=== PATIENT | male | born 1970 | race Caucasian/White ===

== ENCOUNTER 2019-05-29 12:23 | Inpatient (IN) | payer OTHER ==
[2019-05-29 13:03] VITALS: BMI 22.5
--- NOTE | 2019-05-29 15:15 | HP ---
CIWA Score Nausea/Vomitin-No Nausea/No Vomiting Muscle Tremors: 2 Anxiety: 1-Mildly Anxious Agitation: 3 Paroxysmal Sweats: 1-Minimal Palms Moist Orientation: 0-Oriented Tacttile Disturbances: 2-Mild Itch/Numbness/Burn Auditory Disturbances: 0-None Visual Disturbances: 1-Very Mild Sensitivity Headache: 0-None Present CIWA-Ar Total Score: 10 - Admission Criteria [facility] Guidelines: Admission for Medically Managed Detox: Requires at least one of the followin. CIWA greater than 12 2. Seizures within the past 24 hours 3. Delirium tremens within the past 24 hours 4. Hallucinations within the past 24 hours 5. Acute intervention needed for co occurring medical disorder 6. Acute intervention needed for co occurring psychiatric disorder 7. Severe withdrawal that cannot be handled at a lower level of care (continued vomiting, continued diarrhea, abnormal vital signs) requiring intravenous medication and/or fluids 8. Admission ROS [facility] Chief Complaint: Christian Schwartz is a 49 year old male presenting for alcohol, heroin, cocaine abuse. Allergies/Adverse Reactions: Allergies Allergy/AdvReac Type Severity Reaction Status Date / Time Fish Containing Products Allergy Severe Itching Verified 05/29/19 12:54 History of Present Illness: Christian Schwartz is a 49 year old male presenting for alcohol, heroin, cocaine abuse. Alcohol: 1 pint at the minimum, 6 can of malt liqour. Daily drinker. Last drink last night. Has been drinking since age of 14. Longest period of sobriety: 3 years when he was on long-term treatment program. Denies seizures, blackouts. Has had falls. Denies head hits. Withdrawal symptoms: anxiety, tremors, headaches. Referred by [facility]. Heroin: last use 2-3 days. 2-3 bags/daily. Rarely IVDU. Inhalation use. Has had a history of overdoses. Does not have a Narcan kit, but knows how to use it. Has never been on a methadone program. Withdrawal: tremors, diarrhea, vomiting Cocaine: approximately 100 dollars per day but occasionally more. Daily user. Smoking, denies IVDU. Marijuana: quarter of an oz per week. Has been detox and rehab in the past. Plans after detox: wants to go to a rehab. Medical History: asthma Psychiatric History: no definitive diagnoses Surgical History: lower back fusion Smoking: chewing tobacco Social: stays in [facility]. Currently unemployed. Formerly working in air conditioning. Utox: THC, CIARA MIKE: 0.000 Will be admitted for alcohol detox with Librium protocol Expected withdrawal symptoms due to recent alcohol use. Exam Limitations: No Limitations - Ebola screening Have you traveled outside of the country in the last 21 days: No Have you had contact with anyone from an Ebola affected area: No Do you have a fever: No - Review of Systems Constitutional: Chills EENT: reports: Tearing Respiratory: reports: Wheezing Cardiac: reports: Lightheadedness, Palpitations GI: reports: Diarrhea : reports: No Symptoms Reported Musculoskeletal: reports: Back Pain, Joint Pain Integumentary: reports: No Symptoms Reported Neuro: reports: Tingling (hands and feet) Endocrine: reports: No Symptoms Reported Hematology: reports: No Symptoms Reported Psychiatric: reports: Orientated x3, Anxious Patient History - Patient Medical History Hx Anemia: No Hx Chronic Obstructive Pulmonary Disease (COPD): No Hx Cancer: No Hx Cardiac Disorders: No Hx Congestive Heart Failure: No Hx Hypertension: No Hx Hypercholesterolemia: Yes (hypertriglyceridemia) Hx Pacemaker: No HX Cerebrovascular Accident: No Hx Seizures: No Hx Dementia: No Hx Diabetes: No Hx Gastrointestinal Disorders: No Hx Liver Disease: No Hx Genitourinary Disorders: No Hx Sexually Transmitted Disorders: No Hx Renal Disease (ESRD): No Hx Thyroid Disease: No Hx Human Immunodeficiency Virus (HIV): No Hx Hepatitis C: No Hx Depression: No Hx Suicide Attempt: No Hx Bipolar Disorder: No Hx Schizophrenia: No - Patient Surgical History Hx Neurologic Surgery: No Hx Cataract Extraction: No Hx Cardiac Surgery: No Hx Lung Surgery: No Hx Breast Surgery: No Hx Breast Biopsy: No Hx Abdominal Surgery: No Hx Appendectomy: No Hx Cholecystectomy: No Hx Genitourinary Surgery: No Hx Orthopedic Surgery: Yes (spinal fusion s/p fall) - PPD History Previous Implant?: No PPD to be Administered?: Yes - Smoking Cessation Smoking history: Current every day smoker Have you smoked in the past 12 months: Yes Hx Chewing Tobacco Use: Yes (1 tin per day) Initiated information on smoking cessation: Yes 'Breaking Loose' booklet given: 05/29/19 - Substances abused Alcohol Substance route: Oral Frequency: Daily Amount used: 1 pint of vodka & 6 pk beer Age of first use: 15 Date of last use: 05/28/19 Crack Substance route: Smoking Frequency: Daily Amount used: $100 Age of first use: 18 Date of last use: 05/29/19 Heroin Substance route: Inhalation Frequency: Daily Amount used: 2-3 bags Age of first use: 20 Date of last use: 05/26/19 Marijuana/Hashish Substance route: Smoking Frequency: Daily Amount used: 2 grams Age of first use: 14 Date of last use: 05/28/19 Admission Physical Exam [facility] - Vital Signs Vital Signs: Vital Signs - 24 hr 05/29/19 12:53 Temperature 97.6 F Pulse Rate 65 Respiratory 20 Rate Blood Pressure 118/71 - Physical General Appearance: Yes: Disheveled, Mild Distress HEENTM: Yes: EOMI, Normocephalic, Normal Voice, LYNN, Pharynx Normal Respiratory: Yes: Chest Non-Tender, No Respiratory Distress, No Accessory Muscle Use, Wheezing (inspiratory and expiratory) Neck: Yes: No masses,lesions,Nodules, Trachea in good position Breast: Yes: Breast Exam Deferred Cardiology: Yes: Regular Rhythm, Regular Rate, S1, S2 Abdominal: Yes: Normal Bowel Sounds, Non Tender, Flat, Soft Genitourinary: Yes: Within Normal Limits Back: Yes: Normal Inspection Musculoskeletal: Yes: full range of Motion, Back pain (lower back) Extremities: Yes: Normal Capillary Refill, Normal Inspection, Normal Range of Motion, Non-Tender Neurological: Yes: ginner II-XII NML intact, Alert, Motor Strength 5/5 Integumentary: Yes: Normal Color, Dry, Warm, Track Garcia (noted on R AC) - Diagnostic (1) Alcohol abuse Current Visit: Yes Status: Acute (2) Heroin abuse Current Visit: Yes Status: Acute (3) Cocaine abuse Current Visit: Yes Status: Acute (4) Marijuana abuse Current Visit: Yes Status: Acute (5) History of spinal fusion Current Visit: Yes Status: Acute Cleared for Admission [facility] - Detox or Rehab [facility] Level of Care: Medically Managed Detox Regimen/Protocol: Methadone/Librium Breathalyzer - Breathalyzer Breathalyzer: 0 Urine Drug Screen - Test Device Lot number: [id number] Expiration date: 01/16/21 - Control Is test valid?: Yes - Results Drug screen NEGATIVE: No Urine drug screen results: THC-Marijuana, CIARA-Cocaine Inpatient Rehab Admission - Rehab Decision to Admit Inpatient rehab admission?: No
[2019-05-29] MEDS ORDERED: BISMUTH SUBSALICYLATE 524 MG/30 ML UD PO PRN (15:50)
[2019-05-29] MEDS ORDERED: MENTHOL/PHENOL 1 EACH UD MM PRN (15:50)
[2019-05-29] MEDS ORDERED: IBUPROFEN 400 MG TABLET (FP) PO PRN (15:50)
[2019-05-29] MEDS ORDERED: MAG HYDROX/AL HYDROX/SIMETH 30 ML UNIT-DOSE CUP PO PRN (15:50)
[2019-05-29] MEDS ORDERED: MAGNESIUM HYDROX 2400MG/30ML ORAL SUSPENSION 30 ML CUP PO PRN (15:50)
[2019-05-29] MEDS ORDERED: MELATONIN 5 MG TABLETS PO PRN (15:50)
[2019-05-29] MEDS ORDERED: ACETAMINOPHEN 325 MG TABLET (FP) PO PRN ×2 (15:50)
[2019-05-29] MEDS ORDERED: METHOCARBAMOL 500 MG TABLET PO PRN (15:50)
[2019-05-29] MEDS ORDERED: MAGNESIUM CITRATE 300 ML BOTTLE PO PRN (15:50)
[2019-05-29] MEDS ORDERED: chlordiazePOXIDE HCL 10 MG CAPSULE PO PRN (15:50)
[2019-05-29] MEDS ORDERED: ALBUTEROL SO4 2.5/IPRATROPIUM 0.5 INH SOL 3 ML VIAL.NEB. NEB PRN (15:53)
--- NOTE | 2019-05-29 16:08 | PN ---
Teaching Attending Note Name of Resident: Zhang Garcia ATTENDING PHYSICIAN STATEMENT I saw and evaluated the patient. I reviewed the resident's note and discussed the case with the resident. I agree with the resident's findings and plan as documented. SUBJECTIVE: 49 year old male here requesting detox from etoh use , reports 1 pint liquor /day and 6 cams of malt liquor , latest ue yesterday , current symptoms as above , first age of use 14 , longest sobriety 3 years while at [facility] , referred today by [facility] . Denies seizures, blackouts , + falls in the past while intoxicated , most recently 2 years ago w/ spinal fracture and surgery ORIF. Heroin: last use 2-3 days ago, claims 2-3 bags/daily, rarely IVDU , mostly via inhalation use , claims OD i n the past , has been to detox denies MMTP . Cocaine: approximately 100 dollars per day but occasionally more, denies IVDU. Marijuana: quarter of an oz per week. Medical History: asthma Surgical History: lower back fusion Smoking: chewing tobacco Social: stays in nursing home. Currently unemployed. Formerly working in air conditioning. Utox: THC, CIARA MIKE: 0.000 OBJECTIVE: wnwd , anxious , agitated , slight UE tremors Ext : left hand dorsum radiocarpal deformity reports remote injury / hand frx , left ankle edema lateral malleolus reprots remote injury , states planning ankle fusion . Vital Signs - 24 hr 05/29/19 12:53 Temperature 97.6 F Pulse Rate 65 Respiratory 20 Rate Blood Pressure 118/71 ASSESSMENT AND PLAN: Alcohol use disorder - modified Librium detox . Smoking cessation counselling .
[2019-05-29] MEDS: hydrOXYzine PAMOATE 25 MG CAPSULE (FP) PO PRN (17:47)
[2019-05-29] MEDS: chlordiazePOXIDE HCL 10 MG CAPSULE PO ONE (17:47)
[2019-05-29] MEDS: chlordiazePOXIDE HCL 25 MG CAPSULE PO SCH (23:28)
[2019-05-29] MEDS: THIAMINE HCL 100 MG TABLET (FP) PO SCH (23:28)
[2019-05-30] MEDS: chlordiazePOXIDE HCL 25 MG CAPSULE PO SCH ×3 (06:46→21:38)
[2019-05-30 10:08] LABS: HEMOGLOBIN 14.8 GM/dL (11.7-16.9); MCH 32.5 pg (25.7-33.7); MCHC 34.5 g/dl (32.0-35.9); MEAN CELL VOLUME 94.2 fl (80-96); MEAN PLT VOLUME 8.4 fl (7.5-11.1); PLATELET COUNT 360 K/MM3 (134-434); RBC 4.57 M/mm3 (4.00-5.60); RDW 13.6 % (11.9-15.9); WHITE BLOOD COUNT 4.7 K/mm3 (4.0-10.0)
[2019-05-30 10:31] LABS: ALBUMIN 3.6 g/dl (3.4-5.0); BILIRUBIN,TOTAL 0.7 mg/dL (0.2-1); BLOOD UREA NITROGEN 15.8 mg/dL (7-18); CALCIUM 9.1 mg/dL (8.5-10.1); POTASSIUM 4.1 mmol/L (3.5-5.1); TOT PROT 6.6 g/dl (6.4-8.2)
[2019-05-30] MEDS: PRENATAL VITAMINS W/ FOLIC ACID TABLET (FP) PO SCH (10:47)
[2019-05-30] MEDS: NICOTINE 14 MG/24 HOURS TOPICAL PATCH TD SCH (10:48)
[2019-05-30] MEDS: NICOTINE POLACRILEX 2 MG GUM BUC PRN ×2 (10:48→16:57)
[2019-05-30 11:16] LABS: RPR NONREACTIVE (NONREACTIVE)
--- NOTE | 2019-05-30 12:56 | PN ---
S CIWA - CIWA Score Nausea/Vomitin-No Nausea/No Vomiting Muscle Tremors: 3 Anxiety: 3 Agitation: 3 Paroxysmal Sweats: 3 Orientation: 0-Oriented Tacttile Disturbances: 0-None Auditory Disturbances: 0-None Visual Disturbances: 0-None Headache: 0-None Present CIWA-Ar Total Score: 12 S Progress Note (SOAP) Subjective: sweats mild shakes feeling ok Objective: 05/30/19 12:55 Vital Signs Temperature 97.1 F L 05/30/19 09:17 Pulse Rate 65 05/30/19 09:17 Respiratory Rate 16 05/30/19 09:17 Blood Pressure 116/59 L 05/30/19 09:17 O2 Sat by Pulse Oximetry (%) Laboratory Tests 05/30/19 05/30/19 05/30/19 08:00 08:00 08:00 WBC 4.7 RBC 4.57 Hgb 14.8 Hct 43.0 MCV 94.2 MCH 32.5 MCHC 34.5 RDW 13.6 Plt Count 360 MPV 8.4 Sodium 142 Potassium 4.1 Chloride 108 H Carbon Dioxide 29 Anion Gap 5 L BUN 15.8 Creatinine 1.0 Est GFR (CKD-EPI)AfAm 101.98 Est GFR (CKD-EPI)NonAf 87.99 Random Glucose 81 Calcium 9.1 Total Bilirubin 0.7 AST 19 ALT 21 Alkaline Phosphatase 67 Total Protein 6.6 Albumin 3.6 RPR Titer Nonreactive HIV 1&2 Antibody Screen Negative HIV P24 Antigen Negative labs noted aaox3 ambulating no acute distress Assessment: 05/30/19 12:55 withdrawals Plan: continue detox increase fluids
--- NOTE | 2019-05-30 15:14 | CONSULT ---
[facility] Psychiatric Consult - Data Date of interview: 05/30/19 Admission source: [facility] Identifying data: Patient is approached at bedside (third attempt) for psychiatric evaluation. Mr Schwartz refuses. " I don't need to see psychiatrists. " Encounter is witnessed by hospital nursing assistant Germain Cruz. Motion Study Engineer informed nurse of patient's refusal.
[2019-05-30] MEDS: hydrOXYzine PAMOATE 25 MG CAPSULE (FP) PO PRN (17:40)
[2019-05-30] MEDS: THIAMINE HCL 100 MG TABLET (FP) PO SCH (21:38)
[2019-05-31] MEDS: chlordiazePOXIDE HCL 10 MG CAPSULE PO SCH ×3 (05:54→22:13)
[2019-05-31] MEDS: hydrOXYzine PAMOATE 25 MG CAPSULE (FP) PO PRN (05:55)
[2019-05-31] MEDS: NICOTINE POLACRILEX 2 MG GUM BUC PRN ×4 (05:56→20:23)
[2019-05-31] MEDS: NICOTINE 14 MG/24 HOURS TOPICAL PATCH TD SCH (10:24)
[2019-05-31] MEDS: PRENATAL VITAMINS W/ FOLIC ACID TABLET (FP) PO SCH (10:25)
--- NOTE | 2019-05-31 14:28 | PN ---
S CIWA - CIWA Score Nausea/Vomitin-No Nausea/No Vomiting Muscle Tremors: None Anxiety: 3 Agitation: 2 Paroxysmal Sweats: 2 Orientation: 0-Oriented Tacttile Disturbances: 0-None Auditory Disturbances: 0-None Visual Disturbances: 0-None Headache: 0-None Present CIWA-Ar Total Score: 7 BHS Progress Note (SOAP) Subjective: Anxiety, interrupted sleep Objective: 05/31/19 14:26 Last Vital Signs Temp Pulse Resp BP Pulse Ox 96.4 F L 63 18 116/69 05/31/19 13:18 05/31/19 13:18 05/31/19 13:18 05/31/19 13:18 Laboratory Tests 05/30/19 05/30/19 05/30/19 08:00 08:00 08:00 WBC 4.7 RBC 4.57 Hgb 14.8 Hct 43.0 MCV 94.2 MCH 32.5 MCHC 34.5 RDW 13.6 Plt Count 360 MPV 8.4 Sodium 142 Potassium 4.1 Chloride 108 H Carbon Dioxide 29 Anion Gap 5 L BUN 15.8 Creatinine 1.0 Est GFR (CKD-EPI)AfAm 101.98 Est GFR (CKD-EPI)NonAf 87.99 Random Glucose 81 Calcium 9.1 Total Bilirubin 0.7 AST 19 ALT 21 Alkaline Phosphatase 67 Total Protein 6.6 Albumin 3.6 RPR Titer Nonreactive HIV 1&2 Antibody Screen Negative HIV P24 Antigen Negative Labs reviewed Assessment: 05/31/19 14:26 Withdrawal sxs Plan: Continue detox Encouraged PO water intake Patient scheduled for discharge home tomorrow
[2019-05-31] MEDS: THIAMINE HCL 100 MG TABLET (FP) PO SCH (22:13)
[2019-06-01] MEDS: chlordiazePOXIDE HCL 10 MG CAPSULE PO ONE (06:19)
--- NOTE | 2019-06-01 09:31 | DS ---
[facility] Detox Discharge Summary Admission Date: 05/29/19 Discharge Date: 06/01/19 - History Present History: Alcohol Dependence, Cannabis Dependence, Cocaine Dependence - Physical Exam Results Vital Signs: Vital Signs Temperature 97.9 F 06/01/19 09:25 Pulse Rate 66 06/01/19 09:25 Respiratory Rate 18 06/01/19 09:25 Blood Pressure 112/71 06/01/19 09:25 O2 Sat by Pulse Oximetry (%) Pertinent Admission Physical Exam Findings: pt arrived in withdrawals Laboratory Tests 05/30/19 05/30/19 05/30/19 08:00 08:00 08:00 WBC 4.7 RBC 4.57 Hgb 14.8 Hct 43.0 MCV 94.2 MCH 32.5 MCHC 34.5 RDW 13.6 Plt Count 360 MPV 8.4 Sodium 142 Potassium 4.1 Chloride 108 H Carbon Dioxide 29 Anion Gap 5 L BUN 15.8 Creatinine 1.0 Est GFR (CKD-EPI)AfAm 101.98 Est GFR (CKD-EPI)NonAf 87.99 Random Glucose 81 Calcium 9.1 Total Bilirubin 0.7 AST 19 ALT 21 Alkaline Phosphatase 67 Total Protein 6.6 Albumin 3.6 RPR Titer Nonreactive HIV 1&2 Antibody Screen Negative HIV P24 Antigen Negative today pt is aaox3 ambulating no acute distress no s/s of withdrawals - Treatment Hospital Course: Detox Protocol Followed, Detoxed Safely, Responded well, Discharged Condition Good, Rehab Referral Accepted - Medication Discharge Medications: Ambulatory Orders NK [No Known Home Medication] 05/29/19 - Diagnosis (1) Alcohol abuse Current Visit: Yes Status: Chronic (2) Cocaine abuse Current Visit: Yes Status: Chronic (3) Heroin abuse Current Visit: Yes Status: Chronic (4) History of spinal fusion Current Visit: Yes Status: Acute (5) Marijuana abuse Current Visit: Yes Status: Chronic - AMA Did Patient Leave Against Medical Advice: No
[2019-06-01] MEDS: PRENATAL VITAMINS W/ FOLIC ACID TABLET (FP) PO SCH (10:09)
[2019-06-01] MEDS: NICOTINE 14 MG/24 HOURS TOPICAL PATCH TD SCH (10:10)
[2019-06-01] MEDS: NICOTINE POLACRILEX 2 MG GUM BUC PRN (10:10)
[2019-06-01 13:05] VITALS: BP 114/67; PULSE 64; TEMP 97
== END 2019-06-01 13:14 | disposition home or self-care (01) | DRG 773 ==
LOC: YASAS 12:23 → Y6N 16:48
PROVIDERS: ADMIT Allergy & Immunology; ATTEND Allergy & Immunology
PROC: HZ2ZZZZ Detoxification Services for Substance Abuse Treatment (ICD-10-PCS; principal; 2019-05-29)
DX: F10.230 Alcohol dependence with withdrawal, uncomplicated (principal); F11.20 Opioid dependence, uncomplicated; F14.20 Cocaine dependence, uncomplicated; F12.20 Cannabis dependence, uncomplicated; J45.909 Unspecified asthma, uncomplicated; E78.1 Pure hyperglyceridemia; Z98.1 Arthrodesis status; Z91.013 Allergy to seafood
CPT/HCPCS: 36415; 80053; 85027; 86593; 87389

== ENCOUNTER 2022-03-17 11:07 | Inpatient (IN) | payer OTHER ==
[2022-03-17 13:39] VITALS: RESP 18; BMI 23.6
[2022-03-17] MEDS ORDERED: NICOTINE 10 MG CARTRIDGE (INHALER) IH PRN (19:18)
[2022-03-17] MEDS ORDERED: IBUPROFEN 400 MG TABLET (FP) PO PRN (19:18)
[2022-03-17] MEDS ORDERED: MAG HYDROX/AL HYDROX/SIMETH 30 ML UNIT-DOSE CUP PO PRN (19:18)
[2022-03-17] MEDS ORDERED: MAGNESIUM HYDROX 2400MG/30ML ORAL SUSPENSION 30 ML CUP PO PRN (19:18)
[2022-03-17] MEDS ORDERED: MAGNESIUM CITRATE 300 ML BOTTLE PO PRN (19:18)
[2022-03-17] MEDS ORDERED: LOPERAMIDE HCL 2 MG CAPSULE PO PRN (19:18)
[2022-03-17] MEDS ORDERED: guaiFENesin 200 MG/10 ML 10 ML UNIT-DOSE CUPS PO PRN (19:18)
[2022-03-17] MEDS ORDERED: P-EPHED 60MG/TRIPROLIDI 2.5MG TABLET PO PRN (19:18)
[2022-03-17] MEDS ORDERED: ACETAMINOPHEN 325 MG TABLET (FP) PO PRN (19:18)
[2022-03-17] MEDS: THIAMINE HCL 100 MG TABLET (FP) PO SCH (21:26)
[2022-03-17] MEDS: MELATONIN 5 MG TABLETS PO SCH (21:27)
[2022-03-17] MEDS: hydrOXYzine PAMOATE 25 MG CAPSULE (FP) PO SCH (21:27)
[2022-03-18] MEDS: hydrOXYzine PAMOATE 25 MG CAPSULE (FP) PO SCH ×5 (06:29→21:15)
[2022-03-18 09:10] LABS: HEMATOCRIT 45.2 % (35.4-49); HEMOGLOBIN 15.5 GM/dL (11.7-16.9); MCH 32.1 pg (25.7-33.7); MCHC 34.3 g/dl (32.0-35.9); MEAN CELL VOLUME 93.6 fl (80-96); MEAN PLT VOLUME 8.7 fl (7.5-11.1); PLATELET COUNT 294 10^3/uL (134-434); RBC 4.82 M/mm3 (4.00-5.60); WHITE BLOOD COUNT 6.1 K/mm3 (4.0-10.0)
[2022-03-18 09:24] LABS: ALBUMIN 3.6 g/dl (3.4-5.0)
[2022-03-18 09:25] LABS: BLOOD UREA NITROGEN 18.8 mg/dL (7-18); CALCIUM 8.9 mg/dL (8.5-10.1)
[2022-03-18 09:28] LABS: BILIRUBIN,TOTAL 0.2 mg/dL (0.2-1)
[2022-03-18 09:33] LABS: TOT PROT 6.6 g/dl (6.4-8.2)
[2022-03-18] MEDS: NICOTINE 7 MG/24 HOURS TOPICAL PATCH TD SCH (11:04)
[2022-03-18] MEDS: PRENATAL VITAMINS W/ FOLIC ACID TABLET (FP) PO SCH (11:04)
[2022-03-18] MEDS: THIAMINE HCL 100 MG TABLET (FP) PO SCH (21:15)
[2022-03-18] MEDS: MELATONIN 5 MG TABLETS PO SCH (21:15)
[2022-03-19 00:29] LABS: PH,URINE 7.5 (5.0-8.0); URINE APPEARANCE CLOUDY; URINE BILIRUBIN NEGATIVE (NEGATIVE); URINE COLOR YELLOW; URINE GLUCOSE (UA) NEGATIVE (NEGATIVE); URINE KETONE NEGATIVE (NEGATIVE); URINE LEUK ESTERASE NEGATIVE (NEGATIVE); URINE NITRITE NEGATIVE (NEGATIVE); URINE PROTEIN NEGATIVE (NEGATIVE)
[2022-03-19] MEDS: hydrOXYzine PAMOATE 25 MG CAPSULE (FP) PO SCH ×5 (06:54→21:25)
[2022-03-19] MEDS: NICOTINE 7 MG/24 HOURS TOPICAL PATCH TD SCH (13:40)
[2022-03-19] MEDS: PRENATAL VITAMINS W/ FOLIC ACID TABLET (FP) PO SCH (13:40)
[2022-03-19] MEDS ORDERED: TUBERCULIN PPD 5 TU/0.1ML VIAL ID ONE (13:42)
[2022-03-19] MEDS: THIAMINE HCL 100 MG TABLET (FP) PO SCH (21:25)
[2022-03-19] MEDS: MELATONIN 5 MG TABLETS PO SCH (21:25)
[2022-03-20] MEDS: hydrOXYzine PAMOATE 25 MG CAPSULE (FP) PO SCH ×5 (07:17→21:12)
[2022-03-20] MEDS: NICOTINE 7 MG/24 HOURS TOPICAL PATCH TD SCH (09:58)
[2022-03-20] MEDS: PRENATAL VITAMINS W/ FOLIC ACID TABLET (FP) PO SCH (09:59)
[2022-03-20] MEDS: THIAMINE HCL 100 MG TABLET (FP) PO SCH (21:12)
[2022-03-20] MEDS: MELATONIN 5 MG TABLETS PO SCH (21:12)
[2022-03-21] MEDS: hydrOXYzine PAMOATE 25 MG CAPSULE (FP) PO SCH (06:58)
[2022-03-21] MEDS: PRENATAL VITAMINS W/ FOLIC ACID TABLET (FP) PO SCH (09:58)
[2022-03-21] MEDS: hydrOXYzine PAMOATE 25 MG CAPSULE (FP) PO PRN ×2 (09:58→21:17)
[2022-03-21] MEDS: NICOTINE 7 MG/24 HOURS TOPICAL PATCH TD SCH (09:58)
[2022-03-21] MEDS: THIAMINE HCL 100 MG TABLET (FP) PO SCH (21:14)
[2022-03-21] MEDS: MELATONIN 5 MG TABLETS PO SCH (21:14)
[2022-03-22] MEDS: NICOTINE 7 MG/24 HOURS TOPICAL PATCH TD SCH (10:21)
[2022-03-22] MEDS: PRENATAL VITAMINS W/ FOLIC ACID TABLET (FP) PO SCH (10:21)
[2022-03-22] MEDS: MELATONIN 5 MG TABLETS PO SCH (21:15)
[2022-03-22] MEDS: hydrOXYzine PAMOATE 25 MG CAPSULE (FP) PO PRN (21:15)
[2022-03-22] MEDS: THIAMINE HCL 100 MG TABLET (FP) PO SCH (21:15)
[2022-03-23] MEDS: hydrOXYzine PAMOATE 25 MG CAPSULE (FP) PO PRN ×2 (09:52→21:12)
[2022-03-23] MEDS: NICOTINE 7 MG/24 HOURS TOPICAL PATCH TD SCH (09:52)
[2022-03-23] MEDS: PRENATAL VITAMINS W/ FOLIC ACID TABLET (FP) PO SCH (09:52)
[2022-03-23] MEDS: THIAMINE HCL 100 MG TABLET (FP) PO SCH (21:12)
[2022-03-23] MEDS: MELATONIN 5 MG TABLETS PO SCH (21:12)
[2022-03-24] MEDS: NICOTINE 7 MG/24 HOURS TOPICAL PATCH TD SCH (10:19)
[2022-03-24] MEDS: PRENATAL VITAMINS W/ FOLIC ACID TABLET (FP) PO SCH (10:19)
[2022-03-24] MEDS: hydrOXYzine PAMOATE 25 MG CAPSULE (FP) PO PRN ×2 (10:21→21:18)
[2022-03-24] MEDS: THIAMINE HCL 100 MG TABLET (FP) PO SCH (21:18)
[2022-03-24] MEDS: MELATONIN 5 MG TABLETS PO SCH (21:18)
[2022-03-25 07:09] VITALS: TEMP 97.8
[2022-03-25] MEDS: NICOTINE 7 MG/24 HOURS TOPICAL PATCH TD SCH (10:21)
[2022-03-25] MEDS: PRENATAL VITAMINS W/ FOLIC ACID TABLET (FP) PO SCH (10:21)
[2022-03-25] MEDS: hydrOXYzine PAMOATE 25 MG CAPSULE (FP) PO PRN ×3 (10:21→21:17)
[2022-03-25] MEDS: THIAMINE HCL 100 MG TABLET (FP) PO SCH (21:17)
[2022-03-25] MEDS: MELATONIN 5 MG TABLETS PO SCH (21:17)
[2022-03-26 07:19] VITALS: BP 119/70; PULSE 73
[2022-03-26] MEDS: PRENATAL VITAMINS W/ FOLIC ACID TABLET (FP) PO SCH (10:01)
[2022-03-26] MEDS: NICOTINE 7 MG/24 HOURS TOPICAL PATCH TD SCH (10:02)
[2022-03-26] MEDS: MELATONIN 5 MG TABLETS PO SCH (21:33)
[2022-03-26] MEDS: THIAMINE HCL 100 MG TABLET (FP) PO SCH (21:33)
[2022-03-26] MEDS: hydrOXYzine PAMOATE 25 MG CAPSULE (FP) PO PRN (21:34)
== END 2022-03-27 01:20 | disposition left against medical advice (07) | DRG 770 ==
LOC: YASAS 11:07 → Y5N 18:35 → Y3E 03-26 23:06
PROVIDERS: ADMIT Allergy & Immunology; ATTEND Psychiatry & Neurology Pain Medicine
PROC: HZ42ZZZ Group Counseling for Substance Abuse Treatment, Cognitive-Behavioral (ICD-10-PCS; principal; 2022-03-17)
DX: F14.20 Cocaine dependence, uncomplicated (principal); F11.10 Opioid abuse, uncomplicated; F10.10 Alcohol abuse, uncomplicated; F12.20 Cannabis dependence, uncomplicated; F17.210 Nicotine dependence, cigarettes, uncomplicated; Z98.1 Arthrodesis status; Z28.310 Unvaccinated for COVID-19; Z91.013 Allergy to seafood; Z59.00 Homelessness unspecified
CPT/HCPCS: 36415; 80053; 81003; 85027; 86780; C9803-CS; U0003; U0005

== ENCOUNTER 2023-04-30 10:51 | Inpatient (IN) | payer OTHER ==
[2023-04-30 11:26] VITALS: BMI 25.4
[2023-04-30] MEDS ORDERED: IBUPROFEN 400 MG TABLET (FP) PO PRN (14:04)
[2023-04-30] MEDS ORDERED: BENZOCAINE/MENTHOL (CHLORASEPTIC ) LOZENGE MM PRN (14:04)
[2023-04-30] MEDS ORDERED: POLYETHYLENE GLYCOL (HEALTHYLAX) 3350 17 GM PACKET PO PRN (14:04)
[2023-04-30] MEDS ORDERED: COLLOIDAL OATMEAL 1 BAR EACH TP PRN (14:04)
[2023-04-30] MEDS ORDERED: guaiFENesin 600 MG TABLET.ER (FP) PO PRN (14:04)
[2023-04-30] MEDS ORDERED: ACETAMINOPHEN 325 MG TABLET (FP) PO PRN (14:04)
[2023-04-30] MEDS ORDERED: MAGNESIUM HYDROX 2400MG/30ML ORAL SUSPENSION 30 ML CUP PO PRN (14:04)
[2023-04-30] MEDS ORDERED: NALOXONE HCL (KLOXXADO) 8 MG SPRAY NS PRN (14:04)
[2023-04-30] MEDS ORDERED: hydrOXYzine PAMOATE 25 MG CAPSULE (FP) PO PRN (14:04)
[2023-04-30] MEDS ORDERED: IBUPROFEN 600 MG TABLET (FP) PO PRN (14:04)
[2023-04-30] MEDS ORDERED: AMMONIUM LACTATE 12% LOTION 225 GM BOTTLE TP PRN (14:04)
[2023-04-30] MEDS ORDERED: BENZONATATE 200 MG CAPSULE PO PRN (14:04)
[2023-04-30] MEDS ORDERED: MAG HYDROX/AL HYDROX/SIMETH 30 ML UNIT-DOSE CUP PO PRN (14:04)
[2023-04-30] MEDS ORDERED: NALOXONE HCL 0.4 MG/ML VIAL IM PRN (14:04)
[2023-04-30] MEDS ORDERED: LOPERAMIDE HCL 2 MG CAPSULE PO PRN (14:04)
[2023-04-30 19:09] VITALS: RESP 18
[2023-04-30] MEDS: THIAMINE HCL 100 MG TABLET (FP) PO SCH (22:15)
[2023-04-30] MEDS: MELATONIN 5 MG TABLETS PO SCH (22:15)
[2023-05-01] MEDS: PRENATAL VITAMINS W/ FOLIC ACID TABLET (FP) PO SCH (09:35)
[2023-05-01] MEDS: NICOTINE 21 MG/24 HOURS TOPICAL PATCH TD SCH (09:36)
[2023-05-01] MEDS: NICOTINE POLACRILEX 2 MG GUM BUC PRN (09:37)
[2023-05-01 10:40] LABS: URINE APPEARANCE CLEAR; URINE BILIRUBIN NEGATIVE (NEGATIVE); URINE COLOR DK YELLOW; URINE GLUCOSE (UA) NEGATIVE (NEGATIVE); URINE KETONE NEGATIVE (NEGATIVE); URINE LEUK ESTERASE NEGATIVE (NEGATIVE); URINE NITRITE NEGATIVE (NEGATIVE); URINE PROTEIN NEGATIVE (NEGATIVE)
[2023-05-01 10:49] LABS: HEMATOCRIT 39.5 % (35.4-49); HEMOGLOBIN 13.6 GM/dL (11.7-16.9); MCH 30.9 pg (25.7-33.7); MCHC 34.4 g/dl (32.0-35.9); MEAN CELL VOLUME 89.9 fl (80-96); PLATELET COUNT 293 10^3/uL (134-434); RBC 4.39 M/mm3 (4.00-5.60); RDW 12.7 % (11.9-15.9); WHITE BLOOD COUNT 7.9 K/mm3 (4.0-10.0)
[2023-05-01 10:50] LABS: POTASSIUM 4.2 mmol/L (3.5-5.1)
[2023-05-01 10:52] LABS: CALCIUM 8.9 mg/dL (8.5-10.1)
[2023-05-01 10:53] LABS: ALBUMIN 3.6 g/dl (3.4-5.0); BLOOD UREA NITROGEN 20.1 mg/dL (7-18)
[2023-05-01 10:55] LABS: CREATININE 0.9 mg/dL (0.55-1.3)
[2023-05-01 10:58] LABS: BILIRUBIN,TOTAL 0.5 mg/dL (0.2-1); TOT PROT 6.6 g/dl (6.4-8.2)
[2023-05-01] MEDS: MELATONIN 5 MG TABLETS PO SCH (21:16)
[2023-05-01] MEDS: THIAMINE HCL 100 MG TABLET (FP) PO SCH (21:17)
[2023-05-02] MEDS: PRENATAL VITAMINS W/ FOLIC ACID TABLET (FP) PO SCH (09:55)
[2023-05-02] MEDS: NICOTINE 21 MG/24 HOURS TOPICAL PATCH TD SCH (09:55)
[2023-05-02] MEDS: THIAMINE HCL 100 MG TABLET (FP) PO SCH (21:01)
[2023-05-02] MEDS: MELATONIN 5 MG TABLETS PO SCH (21:02)
[2023-05-03 07:14] VITALS: BP 125/76; PULSE 66; TEMP 97.7
[2023-05-03] MEDS: NICOTINE 21 MG/24 HOURS TOPICAL PATCH TD SCH (09:52)
[2023-05-03] MEDS: PRENATAL VITAMINS W/ FOLIC ACID TABLET (FP) PO SCH (09:52)
[2023-05-03] MEDS: NICOTINE POLACRILEX 2 MG GUM BUC PRN (09:53)
== END 2023-05-03 10:43 | disposition left against medical advice (07) | DRG 770 ==
LOC: YASAS 10:51 → Y5N 18:32
PROVIDERS: ADMIT Allergy & Immunology; ATTEND Psychiatry & Neurology Pain Medicine
PROC: HZ42ZZZ Group Counseling for Substance Abuse Treatment, Cognitive-Behavioral (ICD-10-PCS; principal; 2023-04-30)
DX: F13.20 Sedative, hypnotic or anxiolytic dependence, uncomplicated (principal); F14.20 Cocaine dependence, uncomplicated; F15.20 Other stimulant dependence, uncomplicated; F17.210 Nicotine dependence, cigarettes, uncomplicated; F41.9 Anxiety disorder, unspecified; J45.909 Unspecified asthma, uncomplicated; Z28.310 Unvaccinated for COVID-19; Z28.9 Immunization not carried out for unspecified reason
CPT/HCPCS: 36415; 80053; 81003; 85027; 86780; 87635; 93005; 93010